=== PATIENT | female | born 1965 | race Caucasian/White ===

== ENCOUNTER 2018-11-01 22:22 | Emergency (ER) | payer OTHER ==
[~2018-11-01] VITALS: Ht 165.1 cm; Wt 97.5 kg
[2018-11-01] MEDS ORDERED: ZOCOR20 MG PO (22:45)
[2018-11-02] MEDS ORDERED: KEFLEX500 M1 PO (00:18)
[2018-11-02 01:25] VITALS: BP 155/92
== END 2018-11-02 01:25 | disposition home or self-care (01) ==
LOC: ER 22:22
DX: S61.211A Laceration without foreign body of left index finger without damage to nail, initial encounter (principal); E78.00 Pure hypercholesterolemia, unspecified; Z88.5 Allergy status to narcotic agent; W26.0XXA Contact with knife, initial encounter; Y93.89 Activity, other specified; Y92.89 Other specified places as the place of occurrence of the external cause; Y99.8 Other external cause status